=== PATIENT | male | born 1975 | race Native Hawaiian/Other Pacific Islander ===

== ENCOUNTER 2021-03-12 18:39 | Emergency (ER) | payer OTHER ==
[~2021-03-12] VITALS: Ht 167.6 cm; Wt 97.5 kg
[2021-03-12 19:35] VITALS: BP 137/94; TEMP 98.9
== END 2021-03-12 19:35 | disposition home or self-care (01) ==
LOC: ED 18:39
DX: S05.02XA Injury of conjunctiva and corneal abrasion without foreign body, left eye, initial encounter (principal); T65.891A Toxic effect of other specified substances, accidental (unintentional), initial encounter; H10.212 Acute toxic conjunctivitis, left eye; X10.2XXA Contact with fats and cooking oils, initial encounter; Y92.89 Other specified places as the place of occurrence of the external cause
CPT/HCPCS: 96372; 99283; J1885